=== PATIENT | female | born 1980 | race Two or more races ===

== ENCOUNTER 2024-12-17 03:01 | Inpatient (IN) | payer OTHER ==
[~2024-12-17] VITALS: Ht 157.5 cm; Wt 103.6 kg
--- NOTE | 2024-12-17 03:41 | DVH ---
CHEST RADIOGRAPH Indication: cp Technique: Single frontal view of the chest was obtained COMPARISON: None FINDINGS: Lines and Tubes: None Lungs: Clear Pleura: No effusion. No pneumothorax. Cardiomediastinal contours: Unremarkable Bones: Unremarkable IMPRESSION: 1. No acute disease.
[2024-12-17 03:42] LABS: Hematocrit 31.7 % (36.0-46.0); Hemoglobin 10.6 g/dL (12.2-16.2); Mean Corpuscular Hemoglobin 28.4 pg (28.0-32.0); Mean Corpuscular Volume 85.3 fL (80.0-100.0); Nucleated Red Blood Cells % 0.1 %
[2024-12-17 03:55] LABS: Potassium 4.4 mmol/L (3.5-5.1); Sodium 139 mmol/L (136-145)
[2024-12-17 03:56] LABS: Anion Gap 10 (5-15); Calcium 9.2 mg/dL (8.7-10.4); Carbon Dioxide 21 mmol/L (20-31)
[2024-12-17 04:01] LABS: BUN/Creatinine Ratio 13.1 (10.0-20.0)
[2024-12-17 04:07] LABS: Blood Urea Nitrogen 37 mg/dL (9-23); Chloride 108 mmol/L (98-107); Glucose 203 mg/dL (74-106)
--- NOTE | 2024-12-17 04:46 | ED.PDOC ---
History of Present Illness HPI Comments 44-year-old female who presents to the emergency department with chest pain that started approximately 10:47 p.m. last night. Pain worsened throughout the evening prompting her parents to the emergency department. She took 81 mg of aspirin at home with some relief of her pain. Pain was initially 10/10 in se verity. Pain is currently 2/10 in severity. She reports associated palpitations and shortness of breath. Patient states she has not been taking her blood pressure medications for the past 3 weeks, she had it on hold for a root canal which she had. She also had her Brilinta on hold. She has a history of [place] 3 years ago with a stent placement, hyperlipidemia and a hyper tension. She states his chest pain feels similar to previous TX. REVIEW OF SYSTEMS: General: No fever, no chills, or fatigue HEENT: No sore throat, no earache, no congestion, no neck pain. Cardiac: + chest pain. + palpitations. Lungs: + shortness of breath, no cough. GI: No nausea, no vomiting, no diarrhea, no constipation, no abdominal pain : No dysuria, frequency, or urgency. No hematuria. Musculoskeletal: No joint pain , no joint swelling, no extremity edema. Skin: No rash, no itching. Neuro: No headache, no dizziness, no weakness Chief Complaint: Chest Pain Time Seen by MD: 03:41 Allergies: Coded Allergies: NO KNOWN ALLERGIES (Unverified , 12/17/24) Mode of Arrival: Ambulatory Was a procedure done? Was a procedure done?: No Differential Dx Considerations may include: Differential diagnosis considered include but are not limited to conjunctivitis, subconjunctival hemorrhage, acute angle closure glaucoma, iritis, uveitis, scleritis, corneal injury, corneal abrasion, optic neuritis, retinal detachment, central retinal artery occlusion, central retinal vein occlusion, other X-Ray, Labs, Meds, VS Vital Signs Date Time Temp Pulse Resp B/P (MAP) Pulse Ox O2 Delivery O2 Flow Rate FiO2 12/17/24 03:04 98.1 108 18 216/114 100 98.1 Lab Test 12/17/24 03:23 Range/Units White Blood Count 13.1 H 4.4-10.8 10^3/uL Red Blood Count 3.71 L 4.0-5.20 10^6/uL Hemoglobin 10.6 L 12.2-16.2 g/dL Hematocrit 31.7 L 36.0-46.0 % Mean Corpuscular Volume 85.3 80.0-100.0 fL Mean Corpuscular Hemoglobin 28.4 28.0-32.0 pg Mean Corpuscular Hemoglobin Concent 33.3 32.0-36.0 g/dL Red Cell Distribution Width 13.4 11.8-14.3 % Platelet Count 203 140-450 10^3/uL Mean Platelet Volume 10.3 6.9-10.8 fL Neutrophils (%) (Auto) 66.5 37.0-80.0 % Lymphocytes (%) (Auto) 21.1 10.0-50.0 % Monocytes (%) (Auto) 10.2 0.0-12.0 % Eosinophils (%) (Auto) 1.4 0.0-7.0 % Basophils (%) (Auto) 0.8 0.0-2.0 % Neutrophils # (Auto) 8.7 H 1.6-8.6 10 ^3/uL Lymphocytes # (Auto) 2.8 0.4-5.4 10 ^3/uL Monocytes # (Auto) 1.3 0-1.3 10 ^3/uL Eosinophils # (Auto) 0.2 0-0.8 10 ^3/uL Basophils # (Auto) 0.1 0-0.2 10 ^3/uL Nucleated Red Blood Cells 0.1 % Sodium Level 139 136-145 mmol/L Potassium Level 4.4 3.5-5.1 mmol/L Chloride Level 108 H 98-107 mmol/L Carbon Dioxide Level 21 20-31 mmol/L Anion Gap 10 5-15 Blood Urea Nitrogen 37 H 9-23 mg/dL Creatinine 2.83 H 0.550-1.02 mg/dL Glomerular Filtration Rate Calc 21 >90 mL/min BUN/Creatinine Ratio 13.1 10.0-20.0 Serum Glucose 203 H 74-106 mg/dL Calcium Level 9.2 8.7-10.4 mg/dL Troponin I High Sensitivity 24 </=34 ng/L B-Type Natriuretic Peptide 167.21 0-100 pg/mL Time of 1ST Reevaluation: 04:44 Reevaluation 1ST: Improved Patient Education/Counseling: Other (Need for admission) Family Education/Counseling: No Family Present SEPSIS Sepsis Screen Date sepsis recognized/suspect: Dec 17, 2024 Time Sepsis recognized/suspect: 030 Recent Procedure: No On Antibiotic Therapy: No Respiratory Rate >20: No Heart Rate >90: Yes Temp<36 C (96.8 F) or >38.3 C: No SBP <90 or MAP <65 mmHG: No New Acute Mental Status Change: No Is the patient on CPAP, BIPAP,: No Physician Orders Electrocardigram (12/17/24 03:18) Troponin-I Hs (12/17/24 04:18) Troponin-I Hs (12/17/24 06:18) Electrocardigram (12/17/24 04:18) Electrocardigram (12/17/24 06:18) Chest Xray 1 View (12/17/24 03:22) Vital Signs Q1HR (12/17/24 03:22) Saline Lock (12/17/24 03:22) Social Work Associate (12/17/24 ) Vital Signs Date Time Temp Pulse Resp B/P (MAP) Pulse Ox O2 Delivery O2 Flow Rate FiO2 12/17/24 03:04 98.1 108 18 216/114 100 98.1 Laboratory Tests Test 12/17/24 03:23 White Blood Count 13.1 10^3/uL (4.4-10.8) H Departure 1 Departure Time of Disposition: 04:43 Impression: Primary Impression: Chest pain Additional Impressions: Hypertensive urgency PAVITHRA (acute kidney injury) Disposition: ADMITTED INPATIENT Condition: Guarded Comments Patient admitted to hospitalist service for further treatment, evaluation and monitoring. Critical Care Note Critical Care Time?: No Stability Stability form required: No Heart Score Heart Score: Heart Score Response (Comments) Value History Highly Suspicious 2 EKG Normal 0 Age <45 0 Risk Factors >3 or Hx ASHD 2 Troponin Normal limit 0 Total 4 SARA GARDNER MD Dec 17, 2024 04:46
[2024-12-17] MEDS ORDERED: NITROGLYCERIN 0.4 MG SL TAB SL PRN ×2 (06:45→08:30)
[2024-12-17] MEDS ORDERED: DEXTROSE (50%) 50ML SYRG IV PRN ×2 (06:45→09:00)
[2024-12-17] MEDS ORDERED: ONDANSETRON HCL 4 MG/2 ML VIAL IV PRN (06:45)
[2024-12-17] MEDS ORDERED: LABETALOL HCL 20 MG/4 ML VL IV PRN (06:45)
[2024-12-17] MEDS ORDERED: InsuLIN REG 1unit/0.01ml Soln (100units/ml) SC SCH ×2 (07:00→22:00)
[2024-12-17 08:00] VITALS: PULSE 76; RESP 13; O2SAT 98
[2024-12-17] MEDS: LABETALOL HCL 20 MG/4 ML VL IV ONE (08:21)
[2024-12-17] MEDS ORDERED: MORPHINE SULFATE INJ 2 MG/ml SYRG IV PRN (08:30)
[2024-12-17] MEDS: ACCU-CHEK COMFORT CURVE STRIP VI SCH ×2 (08:50→12:27)
[2024-12-17] MEDS: SODIUM CHLORIDE 0.9% 1,000 ML IV ONE (09:05)
[2024-12-17 09:06] LABS: Hematocrit 28.3 % (36.0-46.0); Hemoglobin 9.3 g/dL (12.2-16.2); Mean Corpuscular Hemoglobin 28.3 pg (28.0-32.0); Mean Corpuscular Volume 85.8 fL (80.0-100.0); Nucleated Red Blood Cells % 0.0 %
[2024-12-17 09:17] LABS: INR 0.92 (0.9-1.15); Partial Thromboplastin Time 23.6 SEC (24.5-34.5); Prothrombin Time 9.8 sec (9.3-11.8)
[2024-12-17] MEDS ORDERED: METOPROLOL SUCCINATE XL 50 MG TAB PO SCH (10:00)
[2024-12-17] MEDS: ASPirin-EC 81 mg tab PO SCH (10:26)
[2024-12-17] MEDS: METOPROLOL TARTRATE 25 MG TAB PO SCH (10:28)
[2024-12-17] MEDS: HEPARIN SODIUM (PORCINE) 5000 UNITS/ML 1ML VIAL IV ONE (10:29)
[2024-12-17] MEDS: HEPARIN DRIP/D5W 100UNITS/ML 250 ML IV SCH (10:31)
[2024-12-17 11:48] LABS: Urine Protein, UAD 3+ (Negative)
[2024-12-17] MEDS: InsuLIN REG 1unit/0.01ml Soln (100units/ml) SC SCH (12:32)
[2024-12-17 14:47] VITALS: BP 120/63; PULSE 67; RESP 18; TEMP 97.8; O2SAT 100
--- NOTE | 2024-12-17 14:51 | DVHHP2 ---
Admitting Diagnosis: NSTEMI History of Present Illness HPI Patient is a 44-year-old female with past medical history of [place] with drug- eluting stent placement on Brilinta 2 years prior, history of CKD stage IIIb, type 2 diabetes, who presents with complaints of chest pain and shortness of breath. Patient recently had a root canal completed and was holding her Brilinta and antihypertensives. Patient notes that she was holding these medications for the last 3 weeks. On arrival, patient's troponin was noted to rise from 24, 239, 501. Patient was admitted for NSTEMI. Review of Systems Cardiovascular: Chest Pain H&P Exam Vital Signs Vital Signs Date Time Temp Pulse Resp B/P (MAP) Pulse Ox O2 Delivery O2 Flow Rate FiO2 12/17/24 14:47 97.8 67 18 120/63 (82) 100 97.8 12/17/24 08:00 Room Air* 0 21 General Appeara: Well nourished Pulmonary/Respiratory: Normal breath sounds Cardiovascular/Chest: Regular rate SEPSIS Sepsis Screen Date sepsis recognized/suspect: Dec 17, 2024 Time Sepsis recognized/suspect: 0800 Recent Procedure: No On Antibiotic Therapy: No Respiratory Rate >20: No Heart Rate >90: No Temp<36 C (96.8 F) or >38.3 C: No SBP <90 or MAP <65 mmHG: No New Acute Mental Status Change: No Is the patient on CPAP, BIPAP,: No Physician Orders *Consult Dr.Mukeshchandra Leary (12/17/24 06:45) Labetalol Hcl (Labetalol Hcl) (12/17/24 06:45) Labetalol Hcl (Labetalol Hcl) (12/17/24 06:45) Atorvastatin (Lipitor) (12/17/24 22:00) Aspirin Enteric Coated Tablet (Ecotrin E (12/17/24 10:00) Strict I & O QSHIFT (12/17/24 06:45) Ondansetron Hcl (Zofran) (12/17/24 06:45) Metoprolol Tartrate Tablet (Lopressor Ta (12/17/24 10:00) Admit (12/17/24 08:28) Nitroglycerin Sublingual (Ntrostat Subli (12/17/24 08:30) Morphine Sulfate Injection (12/17/24 08:30) Stat Ekg For Chest Pain (12/17/24 08:28) Notify Md Of Changes From Base (12/17/24 08:28) Lace Sewer For 24 Hours (12/17/24 08:) Emergency Dysrhythmia Protocol (12/17/24 08:) Rhythm Strips Once Every Shift (12/17/24 08:28) Oxygen By Nasal Cannula (12/17/24:) Platelet Monitoring (12/17/24:) Heparin Per Standardized Proce (12/17/24:) Discontinue All Im Injections (12/17/24:29) Heparin Drip/D5w 100units/Ml (12/17/24 08:30) Npo Except Ice Chips (12/17/24 08:30) Echo 2d Mode Cardiac Dop (12/17/24 08:31) Glucose Blood (Accu-Chek Comfort Curve T (12/17/24 12:00) Insulin R (Human) (Insulin R) (12/17/24 12:00) Dextrose 50% Syringe (12/17/24 09:00) Complete Blood Count (12/18/24 04:00) PTPTT (12/17/24 16:00) Heparin Per Pharmacy Protocol (12/17/24 09:55) Cardiac Diet-2gna,Lofat,Lochol (12/17/24 Lunch) Npo After Midnight (12/17/24 12:37) Npo (Nothing By Mouth) Diet (12/18/24 Breakfast) Basic Metabolic Panel (12/17/24 14:13) Basic Metabolic Panel (12/18/24 04:00) Vital Signs Date Time Temp Pulse Resp B/P (MAP) Pulse Ox O2 Delivery O2 Flow Rate FiO2 12/17/24 14:47 97.8 67 18 120/63 (82) 100 97.8 12/17/24 12:00 68 12/17/24 11:30 67 132/58 12/17/24 10:28 70 148/65 12/17/24 08:21 74 136/66 12/17/24 08:00 76 13 98 Room Air* 0 21 12/17/24 08:00 97.2 76 13 142/61 (88) 98 97.2 12/17/24 08:00 80 12/17/24 08:00 142/61 10/22/25 06:56 202/67 Laboratory Tests Test 12/17/24 03:23 12/17/24 08:40 White Blood Count 13.1 10^3/uL (4.4-10.8) H 11.3 10^3/uL (4.4-10.8) H Medications Medications Dose Ordered Sig/Lopez Route Start Time Stop Time Status Last Admin Dose Admin Aspirin 81 mg DAILY PO 12/17/24 10:00 12/17/24 10:26 81 MG Aspirin 324 mg ONCE ONCE PO 12/17/24 03:30 12/17/24 03:31 DC 12/17/24 06:10 324 MG Clonidine HCl 0.2 mg ONCE ONCE PO 12/17/24 06:45 12/17/24 06:49 DC 12/17/24 06:56 0.2 MG Diagnostic Test (Pha) 1 strip ACHS 12/17/24 07:00 12/17/24 09:01 DC 12/17/24 08:50 1 STRIP Diagnostic Test (Pha) 1 strip Q6HR 12/17/24 12:00 12/17/24 12:27 1 STRIP Heparin Sodium (Porcine) 4,000 units ONCE ONCE IV 12/17/24 10:00 12/17/24 10:01 DC 12/17/24 10:29 4,000 UNITS Heparin Sodium/ Dextrose 250 ml @ 10 mls/hr Q24H IV 12/17/24 08:30 12/17/24 10:31 10 MLS/HR Insulin Human Regular Q6HR SC 12/17/24 12:00 12/17/24 12:32 6 UNITS Metoprolol Tartrate 25 mg BID PO 12/17/24 10:00 12/17/24 10:28 25 MG Sodium Chloride 1,000 ml @ 125 mls/hr Q8H ONCE IV 12/17/24 06:45 12/17/24 14:44 DC 12/17/24 09:05 125 MLS/HR Labs/Xrays Labs Test 12/17/24 12:26 12/17/24 10:04 12/17/24 08:40 12/17/24 07:30 Range/Units POC Glucose 251 H 70-106 mg/dl Urine Color Yellow Yellow Urine Clarity Hazy H Clear Urine pH 6.5 5.0-9.0 Urine Specific [place] 1.013 1.001-1.035 Urine Protein 3+ H Negative Urine Ketones Negative Negative Urine Blood 1+ H Negative /uL Urine Nitrite Negative Negative Urine Bilirubin Negative Negative Urine Urobilinogen Normal Negative mg/dL Urine Leukocyte Esterase Negative Negative /uL Urine RBC 15 0 - 4 /hpf Urine Microscopic WBC 9 H 0-5 /HPF Urine Squamous Epithelial Cells Few <5 /hpf Urine Bacteria Many H None Seen /hpf Urine Glucose 4+ H Normal mg/dL White Blood Count 11.3 H 4.4-10.8 10^3/uL Red Blood Count 3.30 L 4.0-5.20 10^6/uL Hemoglobin 9.3 L 12.2-16.2 g/dL Hematocrit 28.3 #L 36.0-46.0 % Mean Corpuscular Volume 85.8 80.0-100.0 fL Mean Corpuscular Hemoglobin 28.3 28.0-32.0 pg Mean Corpuscular Hemoglobin Concent 33.0 32.0-36.0 g/dL Red Cell Distribution Width 13.0 11.8-14.3 % Platelet Count 184 140-450 10^3/uL Mean Platelet Volume 10.1 6.9-10.8 fL Neutrophils (%) (Auto) 69.3 37.0-80.0 % Lymphocytes (%) (Auto) 18.8 10.0-50.0 % Monocytes (%) (Auto) 9.6 0.0-12.0 % Eosinophils (%) (Auto) 1.5 0.0-7.0 % Basophils (%) (Auto) 0.8 0.0-2.0 % Neutrophils # (Auto) 7.8 1.6-8.6 10 ^3/uL Lymphocytes # (Auto) 2.1 0.4-5.4 10 ^3/uL Monocytes # (Auto) 1.1 0-1.3 10 ^3/uL Eosinophils # (Auto) 0.2 0-0.8 10 ^3/uL Basophils # (Auto) 0.1 0-0.2 10 ^3/uL Nucleated Red Blood Cells 0.0 % Prothrombin Time 9.8 9.3-11.8 sec Prothrombin Time INR 0.92 0.9-1.15 Activated Partial Thromboplast Time 23.6 L 24.5-34.5 SEC Troponin I High Sensitivity 501 *H </=34 ng/L Test 12/17/24 03:23 Range/Units Sodium Level 139 136-145 mmol/L Potassium Level 4.4 3.5-5.1 mmol/L Chloride Level 108 H 98-107 mmol/L Carbon Dioxide Level 21 20-31 mmol/L Anion Gap 10 5-15 Blood Urea Nitrogen 37 H 9-23 mg/dL Creatinine 2.83 H 0.550-1.02 mg/dL Glomerular Filtration Rate Calc 21 >90 mL/min BUN/Creatinine Ratio 13.1 10.0-20.0 Serum Glucose 203 H 74-106 mg/dL Calcium Level 9.2 8.7-10.4 mg/dL B-Type Natriuretic Peptide 167.21 0-100 pg/mL Assessment/Plan Primary Diagnosis 1. NSTEMI 2. CAD with DANIELA 3. CKD Stage 3B 4. Type 2 DM 5. Hypertension Plan - Admit to telemetry - Cardiology, Dr. Fair consulted - Heparin drip - Aspirin 81 mg daily - Atorvastatin 40 mg daily - N.p.o. pending left heart cath - TTE ordered - Antihypertensive PRNs as ordered - N.p.o. pending further intervention -ICS with accuchecks - Daily CBC and BMP - Full code Plan discussed with: Patient AUBREY GONZALEZ DO Dec 17, 2024 14:51
[2024-12-17 16:33] LABS: Sodium 140 mmol/L (136-145)
[2024-12-17 16:34] LABS: Anion Gap 10 (5-15)
[2024-12-17 16:35] LABS: Calcium 8.1 mg/dL (8.7-10.4); Carbon Dioxide 19 mmol/L (20-31); Chloride 111 mmol/L (98-107); Potassium 5.3 mmol/L (3.5-5.1)
[2024-12-17 16:37] LABS: INR 0.95 (0.9-1.15); Partial Thromboplastin Time 51.9 SEC (24.5-34.5); Prothrombin Time 10.1 sec (9.3-11.8)
[2024-12-17 16:40] LABS: BUN/Creatinine Ratio 14.9 (10.0-20.0); Blood Urea Nitrogen 44 mg/dL (9-23); Glucose 159 mg/dL (74-106)
[2024-12-17 16:51] VITALS: BP 156/70; PULSE 71; RESP 18; TEMP 98.2; O2SAT 100
[2024-12-17] MEDS: SODIUM ZIRCONIUM CYCL 10 GM PAK PO ONE (21:31)
[2024-12-17 21:35] VITALS: BP 148/65; PULSE 69; RESP 12; TEMP 98.3; O2SAT 99
[2024-12-17] MEDS: IODIXANOL 320MG/ML 100ML BTL IV ONE ×2 (22:24→23:26)
[2024-12-17] MEDS: HEPARIN SODIUM (PORCINE) 5000 UNITS/ML 1ML VIAL ONE (22:28)
[2024-12-17] MEDS: VERAPAMIL 2.5MG/ML INJ 2ML VIAL IV ONE ×2 (22:28→23:30)
[2024-12-17] MEDS: fentaNYL CITRATE 100 MCG/2 ML VL ONE (22:29)
[2024-12-17] MEDS: LIDOCAINE 2%HCL (LOCAL ANESTH.) INJ 20ML MDV ONE (22:30)
[2024-12-17] MEDS: MIDAZOLAM HCL 2MG/2ML 2ml VIAL (1mg/ml) ONE (22:30)
--- NOTE | 2024-12-17 23:15 | DVHINCON2 ---
Date of service: Dec 17, 2024 Referring Physician Ayush Reason for Consultation Chest pain, elevated troponin, history of coronary stenting History of Present Illness This is a 44-year-old female with a PMH of [place] (3 years ago) with cardiac stent placement, hyperlipidemia and hypertension who presents to the emergency department with a complain of worsening chest pain that started approximately 10:47 p.m. last night. Patient reports took 81 mg of Aspirin at home with some relief of her pain. Pain was initially 10/10 in severity. Pain is currently 2/10 in severity. She reports associated palpitations and shortness of breath. Patient states she has not been taking her blood pressure medications for the past 3 weeks, she had it on hold for a recent root canal which she had. She also had her Brilinta on hold. She states his chest pain feels similar to previous DC. WBC 11.3, HGB 9.3, HCT 28.3, PTT 23.6, CL 108, BUN 37, PLASMA CENTER TECHNICIAN 2.83, GLUC 254, TROP 239, 501. Chest x-ray showed NAD.Patient was admitted to the hospital. I am asked to consult on this patient. Allergies: Coded Allergies: NO KNOWN ALLERGIES (Unverified , 12/17/24) Current Medications Current Medications Medications (Trade) Dose Ordered Sig/Lopez Route PRN Reason Start Time Stop Time Status Last Admin Labetalol HCl (Labetalol HCl) 10 mg Q4H PRN IV SBP>150 12/17/24 06:45 Labetalol HCl (Labetalol HCl) 20 mg Q4H PRN IV SBP>180 12/17/24 06:45 Atorvastatin Calcium (Lipitor) 80 mg HS PO 12/17/24 22:00 Metoprolol Succinate (Toprol Xl) 25 mg DAILY PO 12/17/24 10:00 12/17/24 07:21 DC Aspirin (Ecotrin Enteric Coated Tablet) 81 mg DAILY PO 12/17/24 10:00 12/17/24 10:26 Ondansetron HCl (Zofran) 4 mg Q4HPRN PRN IV NAUSEA / VOMITING 12/17/24 06:45 Diagnostic Test (Pha) (Accu-Chek Comfort Curve T) 1 strip ACHS 12/17/24 07:00 12/17/24 09:01 DC 12/17/24 08:50 Insulin Human Regular (InsuLIN R) HS SC 10/22/25 22:00 12/17/24 09:01 DC Insulin Human Regular (InsuLIN R) AC SC 12/17/24 07:00 12/17/24 09:01 DC Dextrose 50 ml UD PRN IV Blood Sugar LESS THAN 60 12/17/24 06:45 12/17/24 09:01 DC Nitroglycerin (Ntrostat Sublingual) 0.4 mg Q5MINP PRN SL FOR CHEST PAIN 12/17/24 06:45 12/17/24 08:40 DC Metoprolol Tartrate (Lopressor Tablet) 25 mg BID PO 12/17/24 10:00 12/17/24 10:28 Nitroglycerin (Ntrostat Sublingual) 0.4 mg Q5MINP PRN SL FOR CHEST PAIN 12/17/24 08:30 Morphine Sulfate 2 mg Q30M PRN IV FOR CHEST PAIN 12/17/24 08:30 Heparin Sodium/ Dextrose 250 ml @ 10 mls/hr Q24H IV 12/17/24 08:30 12/17/24 10:31 Diagnostic Test (Pha) (Accu-Chek Comfort Curve T) 1 strip Q6HR 12/17/24 12:00 Insulin Human Regular (InsuLIN R) Q6HR SC 12/17/24 12:00 Dextrose 50 ml UD PRN IV Blood Sugar LESS THAN 60 12/17/24 09:00 Review of Systems General: No fever, no chills, or fatigue HEENT: No sore throat, no earache, no congestion, no neck pain. Cardiac: + chest pain. + palpitations. Lungs: + shortness of breath, no cough. GI: No nausea, no vomiting, no diarrhea, no constipation, no abdominal pain : No dysuria, frequency, or urgency. No hematuria. Musculoskeletal: No joint pain , no joint swelling, no extremity edema. Skin: No rash, no itching. Neuro: No headache, no dizziness, no weakness Vital Signs Vital Signs Date Time Temp Pulse Resp B/P (MAP) Pulse Ox O2 Delivery O2 Flow Rate FiO2 12/17/24 11:30 67 132/58 12/17/24 08:00 13 98 Room Air* 0 21 12/17/24 08:00 97.2 97.2 Physical Exam GENERAL: Alert and oriented x 3. No acute distress. EYES: PERRL, EOMI. Anicteric. HENT: Moist mucous membranes. LUNGS: Clear to auscultation bilaterally. CARDIOVASCULAR: Regular rate and rhythm. ABDOMEN: Soft, nontender and nondistended. EXTREMITIES: No edema. NEUROLOGIC: No focal neurological deficits. SKIN: Warm, dry. Labs/Diagnostic Data Labs Test 12/17/24 10:04 12/17/24 08:48 12/17/24 08:40 12/17/24 07:30 Range/Units Urine Color Yellow Yellow Urine Clarity Hazy H Clear Urine pH 6.5 5.0-9.0 Urine Specific [place] 1.013 1.001-1.035 Urine Protein 3+ H Negative Urine Ketones Negative Negative Urine Blood 1+ H Negative /uL Urine Nitrite Negative Negative Urine Bilirubin Negative Negative Urine Urobilinogen Normal Negative mg/dL Urine Leukocyte Esterase Negative Negative /uL Urine RBC 15 0 - 4 /hpf Urine Microscopic WBC 9 H 0-5 /HPF Urine Squamous Epithelial Cells Few <5 /hpf Urine Bacteria Many H None Seen /hpf Urine Glucose 4+ H Normal mg/dL POC Glucose 254 H 70-106 mg/dl White Blood Count 11.3 H 4.4-10.8 10^3/uL Red Blood Count 3.30 L 4.0-5.20 10^6/uL Hemoglobin 9.3 L 12.2-16.2 g/dL Hematocrit 28.3 #L 36.0-46.0 % Mean Corpuscular Volume 85.8 80.0-100.0 fL Mean Corpuscular Hemoglobin 28.3 28.0-32.0 pg Mean Corpuscular Hemoglobin Concent 33.0 32.0-36.0 g/dL Red Cell Distribution Width 13.0 11.8-14.3 % Platelet Count 184 140-450 10^3/uL Mean Platelet Volume 10.1 6.9-10.8 fL Neutrophils (%) (Auto) 69.3 37.0-80.0 % Lymphocytes (%) (Auto) 18.8 10.0-50.0 % Monocytes (%) (Auto) 9.6 0.0-12.0 % Eosinophils (%) (Auto) 1.5 0.0-7.0 % Basophils (%) (Auto) 0.8 0.0-2.0 % Neutrophils # (Auto) 7.8 1.6-8.6 10 ^3/uL Lymphocytes # (Auto) 2.1 0.4-5.4 10 ^3/uL Monocytes # (Auto) 1.1 0-1.3 10 ^3/uL Eosinophils # (Auto) 0.2 0-0.8 10 ^3/uL Basophils # (Auto) 0.1 0-0.2 10 ^3/uL Nucleated Red Blood Cells 0.0 % Prothrombin Time 9.8 9.3-11.8 sec Prothrombin Time INR 0.92 0.9-1.15 Activated Partial Thromboplast Time 23.6 L 24.5-34.5 SEC Troponin I High Sensitivity 501 *H </=34 ng/L Test 12/17/24 03:23 Range/Units Sodium Level 139 136-145 mmol/L Potassium Level 4.4 3.5-5.1 mmol/L Chloride Level 108 H 98-107 mmol/L Carbon Dioxide Level 21 20-31 mmol/L Anion Gap 10 5-15 Blood Urea Nitrogen 37 H 9-23 mg/dL Creatinine 2.83 H 0.550-1.02 mg/dL Glomerular Filtration Rate Calc 21 >90 mL/min BUN/Creatinine Ratio 13.1 10.0-20.0 Serum Glucose 203 H 74-106 mg/dL Calcium Level 9.2 8.7-10.4 mg/dL B-Type Natriuretic Peptide 167.21 0-100 pg/mL Assessment NSTEMI. History of DC 3 years ago with cardiac stent placement. Hyperlipidemia. Hypertension. Plan/Recommendation I agree with your ongoing assessment and care of plan. Nitro SL. Heparin drip per protocol. Aspirin, Lipitor, Metoprolol. IV Labetalol for SBP > 180. Morphine for pain management. Additional plan as per the hospital course. A total of 45 minutes was spent reviewing the patient record, examining the patient, making a diagnostic and therapeutic plan, discussing this plan with medical personnel, following up on diagnostic studies and following the patient for clinical stability excluding any and all procedures. At least 50% of this time was spent in direct, [id number] contact. Plan discussed with: Patient AMESTACIE Munguia MD Dec 17, 2024 11:56
[2024-12-18] VITALS (11 sets, daily range): BP systolic 154–181; BP diastolic 74–90; PULSE 72–83; RESP 10–18; TEMP 36.7; O2SAT 98–100
[2024-12-18] MEDS: ATORVASTATIN 20 MG TAB PO SCH (00:17)
[2024-12-18] MEDS: TICAGRELOR 90 MG TAB ONE (00:19)
[2024-12-18] MEDS ORDERED: CHOL20007 PO (03:19)
[2024-12-18] MEDS ORDERED: TICA90TA PO ×2 (03:19→07:25)
[2024-12-18] MEDS ORDERED: METO25TA5 PO (03:19)
[2024-12-18] MEDS ORDERED: ASPI-543 PO ×2 (03:19→07:25)
[2024-12-18] MEDS ORDERED: ATOR20TA PO (03:19)
[2024-12-18] MEDS ORDERED: PIO30T PO (03:19)
[2024-12-18] MEDS: LABETALOL HCL 20 MG/4 ML VL IV PRN (05:42)
[2024-12-18 05:48] LABS: Hematocrit 27.6 % (36.0-46.0); Hemoglobin 9.2 g/dL (12.2-16.2); Mean Corpuscular Hemoglobin 28.7 pg (28.0-32.0); Mean Corpuscular Volume 86.3 fL (80.0-100.0); Nucleated Red Blood Cells % 0.0 %
[2024-12-18 05:55] LABS: Potassium 4.6 mmol/L (3.5-5.1); Sodium 136 mmol/L (136-145)
[2024-12-18 05:56] LABS: Anion Gap 8 (5-15)
[2024-12-18 05:58] LABS: Calcium 8.2 mg/dL (8.7-10.4); Carbon Dioxide 19 mmol/L (20-31); Chloride 109 mmol/L (98-107)
[2024-12-18 06:02] LABS: BUN/Creatinine Ratio 14.5 (10.0-20.0)
[2024-12-18 06:06] LABS: Blood Urea Nitrogen 37 mg/dL (9-23); Glucose 214 mg/dL (74-106)
--- NOTE | 2024-12-18 07:32 | DVHDS2 ---
New Physician D'charge PN Admitting Diagnosis Admitting Diagnosis nstemi Discharge Diagnosis nstemi s/p PCI x1 Operations or Procedures cardiac cath with PCI x1 Reason(s) For Hospitalization Surgery Hospital Course 44 F who has a hx of VT and PCI x1 in the past comes to the ER for chest pain. Her troponin peaked at 500 and she was admitted and started on heparin gtt. Cardiology saw her and she consented for coronary angiogram which she had done by cardio and she underwent PCI x 1 to RCA this hospital admission, Patient tolerated the procedure well and has been cleared by cardiology for discharge home, Patient will be given prescription for asa/brillinta as recommended by cardiology and she will continue her statin and beta kate at home as she already takes these meds at home, [facility] to arrange for all outpt follow up and patient cleared by cardiology for discharge home, Treatment Plan Discharge Condition of Discharge Good Disposition Home Discharge Instructions Diet: Cardiac 2g Na,low cholest Activity: No Restrictions, As Tolerated Medications: see med sheet Follow Up Care Follow Up/Referral: pcp cardio Discharge Statement: "Patient was advised to return to the ER or call 911 if any headaches, dizziness, shortness of breath, chest pain, abdominal pain, bleeding, fevers, or worsening of medical condition. Patient was counseled about treatment plan, medications, possible side effects, patientverbalized understanding. All questions were answered to the best of my ability. This discharge took greater then 30 minutes in planning, reviewing documentation, counseling the patient, and discussing with other team members." UZIEL MURPHY MD Dec 18, 2024 07:32
[2024-12-18] MEDS: TICAGRELOR 90 MG TAB PO SCH (10:09)
--- NOTE | 2024-12-18 18:48 | DVHPN2 ---
Progress Note - Dictate Date Seen: Dec 18, 2024 Medical Necessity Reason Pt with a Central, PICC or Fol: No Subjective Patient was seen and evaluated in follow up. Patient underwent cardiac cath with PCI x1. The patient tolerated the procedure well. HGB 9.2, HCT 27.6, CL 109, CO2 19, BUN 37, IMMUNOLOGY SPECIALIST 2.56, GLUC 216, CA 8.2. Telemetry reviewed. vital signs Vital Sign Date Time Temp Pulse Resp B/P (MAP) Pulse Ox O2 Delivery O2 Flow Rate FiO2 12/18/24 11:57 87 176/90 12/18/24 10:11 36.7 12/18/24 09:00 18 100 12/18/24 01:51 Room Air* 0 21 Total Intake and Output 12/17/24 12/17/24 12/18/24 15:00 23:00 07:00 Intake Total 200 ml Balance 200 ml medications Current Medications Medications Dose Ordered Sig/Lopez Route Start Time Stop Time Status Last Admin Dose Admin Labetalol HCl 10 mg Q4H PRN IV 12/17/24 06:45 12/18/24 11:57 10 MG Labetalol HCl 20 mg Q4H PRN IV 12/17/24 06:45 Atorvastatin Calcium 80 mg HS PO 12/17/24 22:00 12/18/24 00:17 80 MG Aspirin 81 mg DAILY PO 12/17/24 10:00 12/18/24 10:09 81 MG Ondansetron HCl 4 mg Q4HPRN PRN IV 12/17/24 06:45 Metoprolol Tartrate 25 mg BID PO 12/17/24 10:00 12/18/24 10:09 25 MG Nitroglycerin 0.4 mg Q5MINP PRN SL 12/17/24 08:30 Morphine Sulfate 2 mg Q30M PRN IV 12/17/24 08:30 Diagnostic Test (Pha) 1 strip Q6HR 12/17/24 12:00 12/18/24 12:02 1 STRIP Insulin Human Regular Q6HR SC 12/17/24 12:00 12/18/24 05:54 4 UNITS Dextrose 50 ml UD PRN IV 12/17/24 09:00 Ticagrelor 90 mg BID PO 12/18/24 10:00 12/18/24 10:09 90 MG Aspirin 81 mg BID PO 12/18/24 10:00 objective GENERAL: Alert and oriented x 3. No acute distress. EYES: PERRL, EOMI. Anicteric. HENT: Moist mucous membranes. LUNGS: Clear to auscultation bilaterally. CARDIOVASCULAR: Regular rate and rhythm. ABDOMEN: Soft, nontender and nondistended. EXTREMITIES: No edema. NEUROLOGIC: No focal neurological deficits. SKIN: Warm, dry. laboratory and microbiology Laboratory Tests 12/18/24 05:24 Test 12/18/24 05:24 Range/Units Serum Glucose 214 H 74-106 mg/dL Problem List NSTEMI. History of DC 3 years ago with cardiac stent placement. Hyperlipidemia. Hypertension. Assessment/Plan Continued all current supportive medical care. Nitro SL. IV Labetalol for SBP > 180. Aspirin, Lipitor, Metoprolol, Brilinta. Morphine for pain management. Additional plan as per the hospital course. Plan discussed with: Patient STACIE MCCLOUD MD Dec 18, 2024 12:56
--- NOTE | 2024-12-18 23:11 | DVHSR ---
APPROVED REPORT EXAM: Two-dimensional and M-mode echocardiogram with Doppler and color Doppler. Blood Pressure: 136/66 mmHg INDICATION NSTEMI RISK FACTORS Height: 5' 2", Weight: 219 DIMENSIONS LVDd4.7 (3.8-5.7cm)LA (2D)3.8 (1.9-4.0cm)Aortic Root2.8 (2.0-3.7cm) LVDs3.4 (2.5-4.0cm)LA (MM) (1.9-4.0cm)Aortic Cusp Exc1.5 (1.5-2.0cm) EF (%) 55.0 (55-70%)Rt. Atrium3.5 (1.9-4.0cm)Asc. Aorta cm IVSd0.9 (0.7-1.1cm)RV (D) (1.8-2.4cm) PWd0.9 (0.7-1.1cm) Mitral Valve MitralMitral Stenosis E wave1.30m/sMV Mean GR.mmHg A wave0.90m/sMV Peak GR.mmHg E/A ratio1.42D MVAcm2 Aortic Valve Aortic ValveAortic Stenosis V10.80m/Jesu Mean GR.16mmHg V22.80m/Jesu Peak GR.31mmHg Pulmonic Valve V20.80m/s Tricuspid Valve TR Velocity1.80m/s [id number] Conclusion MODERATE DEGREE LVH AND MODERATE DEGREE LV DIASTOLIC DYSFUNCTION LV EF IS 65% AORTIC SCLEROSIS MITRAL ANNULAR CALCIFICATION NO EFFUSION
[2024-12-19 12:02] LABS: Hepatitis B Surface Antigen Negative (Negative); Hepatitis C Antibody Negative (Negative)
--- NOTE | 2024-12-19 12:42 | DVHOP ---
DATE OF SURGERY: 12/17/2024 TECHNIQUES PERFORMED: * Emergency case. * Ultrasound of the right radial artery. * Management of conscious sedation. * Ultrasound-guided insertion of 6-Wallisian arterial line from the right radial artery. * Teller selective left and right coronary artery angiography. ASSISTANTS: Assisted by Deb Hernández Brian and Naz. INDICATIONS: The patient has an acute myocardial infarction, history of previous angioplasty and stenting of the left anterior descending artery. The patient has a history of diabetes, hypertension, chronic kidney disease. DESCRIPTION OF PROCEDURE: Risks and benefits discussed in a standard manner, especially with kidney failure because her GFR is low and ____. The patient had been brought to the skill labor. The right radial area thoroughly cleaned with soap and Betadine. A 6-Wallisian arterial line had been placed. Under ultrasound guidance, we have put a TIG catheter 5-Wallisian 4.0 and the right coronary angio done. With the help of similar catheter, we have gone through also with the left coronary artery angiography and the procedure completed. IMPRESSION: * Right coronary artery with very large dominant artery. Right coronary artery in its mid region has about 2 lesions. The first lesion is 90% blocked. The second lesion is 99% blocked. Posterior descending artery along with posterolateral branch is normal. * The left main is normal. * The left circumflex artery is moderately large artery, normal obtuse marginal artery, have been widely opened. * The left anterior descending artery has been narrowed, in the range of 80%. There are total of 3 lesions noted in the ____ artery, one in the mid region 70% followed by another 70% lesion. Another at the junction of the mid distal region ____ also 90%. The previously deployed stent in the left mid distal region of the left anterior descending artery is largely opened. Now, the patient ____ total of 3 lesions noted in the mid region of the left anterior descending artery. PLAN OF ACTION: At this time ____ will undergo the angioplasty and stenting of the right dominant and right coronary artery and the left anterior descending artery is not an emergency at this time. Matias Fair MD MP/PAT/BOB TID: [id number] RECEIPT: [id number]
--- NOTE | 2024-12-19 12:49 | DVHOP ---
DATE OF SURGERY: 12/17/2024 TECHNIQUES PERFORMED: * Emergency case. * Ultrasound of the right radial artery. * Management of conscious sedation. * Ultrasound-guided insertion of 6-Tajik arterial line in the ____ artery. * Right coronary angiography. * Balloon angioplasty of the mid region of the right coronary artery with 2.5 x 20 mm length semi-compliant balloon. * Stenting and angioplasty of the mid region of the right coronary artery with 2.75 x 26 mm in length [employer] [place] drug-eluting stent of the [employer] [place]. * The intravascular ultrasound of the right coronary artery of the stent region. * Balloon angioplasty of the entire stent region with 3.0 x 8 mm length noncompliant balloon and mid artery size up to 3.25 mm in size. COMPLICATIONS: None. ASSISTANTS: Assisted by Deb Hernández Brian and Angie. INDICATIONS: As follows: This patient has underlying 90% narrowing of the mid region of the right coronary artery followed by another lesion in the range of 99%, right dominant right coronary artery, known ST elevation SC. DESCRIPTION OF PROCEDURE: The risk of kidney failure clearly discussed and may happen to undergo dialysis. ____. The patient has been brought to the cardiac laborer wood preserving plant where ____ cleaned with soap and Betadine. Lidocaine was given and under ultrasound guidance 6-Tajik arterial line was placed. The patient got 200 mcg of the nitroglycerin, 2.5 mg of verapamil, 2000 units of heparin was given. We have put EBU catheter, unable to engage it, so now we changed it to JR-4, 6-Tajik guiding catheter and able to engage it. With a side hole, we put MS Whisper wire, went through very well. Subsequently, now we put a balloon 2.5 x 20, balloon angioplasty was done. Subsequently, we put a stent 2.75 x 26. Stent was deployed at total of 13 and 15 atmospheres and 17 atmospheres. Stent size was increased gradually, 3.0 mm in size. Subsequently, we did intravascular ____. So we put a 3.0 x 15 mm length noncompliant balloon, unable to pass through it. So, now we put a 3.0 x 8 mm length noncompliant balloon 8-Tajik, balloon angioplasty was done in proximal, mid and distal region of the stent and made the stent site to 3.25 mm in size. Procedure went well. Angiography was done. There were no complications. Balloon, wire and catheter all had been discontinued. CONCLUSIONS: * Prior to performing the procedure #1, the right coronary artery from the entire mid section is narrowed. The first lesion is 90%, second lesion is 99%. Both the lesions have a WOJCIECH grade 3 flow. * The post-procedure WOJCIECH grade 3 flow, residual stenosis is 0%. PLAN OF ACTION: Advised for Brilinta, aspirin, beta-kate and cholesterol-reducing medicine, outpatient followup, and we will decide about a further plan of action about the left anterior descending artery at a later date. Continue aspirin, Brilinta, beta-kate and cholesterol-reducing medicine. Matias Fair MD MP/SEAN/BOB TID: [id number] RECEIPT: [id number]
--- NOTE | 2024-12-23 16:40 | ECG ---
[facility] Test Date: 2024-12-17 Test Time: 03:10:04 Pat Name: EMETERIO ANTONY Department: ED Room: [address] [place] [address] Gender: F Emergency Communications Operator: LAYNE : 1980 Requested By: SARA GARDNER Order Number: [id number] Reading MD: Measurements Intervals [place] Rate: 106 P: 63 IA: 87 QRS: 83 QRSD: 157 T: -50 QT: 316 QTc: 420 Interpretive Statements Sinus tachycardia Nonspecific intraventricular conduction delay Repol abnrm suggests ischemia, anterolateral Please click the below link to view image of tracing.
== END 2024-12-18 14:32 | disposition home or self-care (01) | DRG 174 ==
LOC: ER 03:01 → OVERFLOW 08:28 → TELE-EAST 12-18 01:10
PROVIDERS: ADMIT Student in an Organized Health Care Education/Training Program; ATTEND Student in an Organized Health Care Education/Training Program
PROC: 03HY32Z Insertion of Monitoring Device into Upper Artery, Percutaneous Approach (ICD-10-PCS; principal; 2024-12-17)
PROC: 027034Z Dilation of Coronary Artery, One Artery with Drug-eluting Intraluminal Device, Percutaneous Approach (ICD-10-PCS; 2024-12-17)
PROC: B240ZZ3 Ultrasonography of Single Coronary Artery, Intravascular (ICD-10-PCS; 2024-12-17)
PROC: B211YZZ Fluoroscopy of Multiple Coronary Arteries using Other Contrast (ICD-10-PCS; 2024-12-17)
DX: I21.4 Non-ST elevation (NSTEMI) myocardial infarction (principal); N17.0 Acute kidney failure with tubular necrosis; I50.33 Acute on chronic diastolic (congestive) heart failure; R65.11 Systemic inflammatory response syndrome (SIRS) of non-infectious origin with acute organ dysfunction; I16.0 Hypertensive urgency; E11.22 Type 2 diabetes mellitus with diabetic chronic kidney disease; E78.5 Hyperlipidemia, unspecified; I25.10 Atherosclerotic heart disease of native coronary artery without angina pectoris; N18.32 Chronic kidney disease, stage 3b; I12.9 Hypertensive chronic kidney disease with stage 1 through stage 4 chronic kidney disease, or unspecified chronic kidney disease; Z79.82 Long term (current) use of aspirin; Z79.899 Other long term (current) drug therapy; Z91.148 Patient's other noncompliance with medication regimen for other reason
CPT/HCPCS: 36415; 71045; 80048; 81001; 82962; 83880; 84484; 85025; 85610; 85730; 86803; 87340; 92941; 92978; 93005; 93306; 93454; 99152; C1887; G0378; J1815; J2250; Q9967

== ENCOUNTER 2025-01-22 15:56 | Emergency (ER) | payer OTHER ==
[~2025-01-22] VITALS: Ht 157.5 cm; Wt 101.8 kg
[~2025-01-22 15:56] MED LIST: ASPI-543 PO; ATOR20TA PO; CHOL20007 PO; METO25TA5 PO; PIO30T PO; TICA90TA PO
[2025-01-22 15:59] VITALS: PULSE 97; RESP 18; TEMP 98.7; O2SAT 100
--- NOTE | 2025-01-22 16:26 | ED.PDOC ---
HPI Comments A 44 YEAR OLD FEMALE PRESENTS TO THE ED WITH COMPLAINT OF LACERATION OF LEFT INDEX FINGER. PATIENT STATES SHE WAS COOKING AND SHE ACCIDENTALLY CUT HER LEFT INDEX FINGER WITH THE KNIFE SHE WAS USING. PATIENT REPORTS SHE IS CONCERNED DUE HER TAKING BLOOD THINNERS. BLEEDING IS CONTROLLED AT THIS TIME. PATIENT DENIES FEVER, CHILLS, SHORTNESS OF BREATH, CHEST PAIN, ABDOMINAL PAIN, NAUSEA, VOMITING, HEADACHE, OR OTHER COMPLAINTS. NO OTHER SYMPTOMS OR MODIFYING FACTORS AT THIS TIME. PATIENT IS ALERT, ORIENTED X 4, AND HAS STEADY GAIT. Chief Complaint: Laceration Time Seen by MD: 16:19 Reviewed Notes: Nurses Notes, Medications, Allergies Allergies: Coded Allergies: NO KNOWN ALLERGIES (Unverified , 12/17/24) Home Meds Active Scripts Cephalexin Monohydrate (Cephalexin) 500 Mg Cap, 1 CAP PO QID, #32 CAP Prov:VIDAL BONDS 01/22/25 Ticagrelor Base (BRILINTA) 90 Mg Tab, 90 MG PO BID for 30 Days, #60 TAB 3 Refills Prov:UZIEL MURPHY MD 12/18/24 Aspirin (Aspir-Low) 81 Mg Tab, 81 MG PO DAILY for 30 Days, #30 MG 3 Refills Prov:UZIEL MURPHY MD 12/18/24 Reported Medications Pioglitazone Hydrochloride (ACTOS TABLET) 30 Mg Tb, 1 TAB PO DAILY, #30 TAB 5 Refills 12/18/24 Cholecalciferol (VITAMIN D3) 2,000 Unit Tab, 1 TAB PO DAILY, #30 TAB 5 Refills 12/18/24 Metoprolol Tartrate (Metoprolol Tartrate) 25 Mg Tab, 25 MG PO for 30 Days, MG 12/18/24 Atorvastatin Calcium (Lipitor) 20 Mg Tab, 1 TAB PO DAILY, #90 TAB 1 Refill 12/18/24 Information Source: Patient Mode of Arrival: Ambulatory Severity: Moderate Severity of Laceration: Controlled Bleeding Complexity: Simple Timing: Hours Prehospital treatment: None Laceration Location: Digit #2 (LEFT INDEX FINGER) Mechanism: Knife Last Tetanus: Unknown Laceration Length (cm): 3 Skin Type: Linear Depth of Injury: SQ Tendon Injury: 0% Capillary Refill: < 3 seconds Tender: Moderate Discharge: None Erythema: None Associated Signs and Symptoms: None Past Medical History PAST MEDICAL HISTORY: [place], [place] Surgical History: Denies all surgeries PAINTER HELPER History: No Pertinent PAINTER HELPER History Family History Family History: Reviewed,noncontributory to illness Social History Smoker: Non-Smoker Alcohol: Denies ETOH Use Drugs: Denies Drug Use Lives In: Home Constitutional: denies: chills, diaphoresis, fatigue, fever, malaise, sweats, weakness, others EENTM: denies: blurred vision, double vision, ear bleeding, ear discharge, ear drainage, ear pain, ear ringing, eye pain, eye redness, hearing loss, mouth pain, mouth swelling, nasal discharge, nose bleeding, nose congestion, nose pain, photophobia, tearing, throat pain, throat swelling, voice changes, others Respiratory: denies: cough, hemoptysis, orthopnea, SOB at rest, shortness of breath, SOB with excertion, stridor, wheezing, others Cardiovascular: denies: chest pain, dizzy spells, diaphoresis, Dyspnea on exertion, edema, irregular heart beat, left arm pain, lightheadedness, palpitations, PND, syncope, others Gastrointestinal: denies: abdomen distended, abdominal pain, blood streaked bowels, constipated, diarrhea, dysphagia, difficulty swallowing, hematemesis, melena, nausea, poor appetite, poor fluid intake, rectal bleeding, rectal pain, vomiting, others Genitourinary: denies: abnormal vagina bleeding, burning, dyspareunia, dysuria, flank pain, frequency, hematuria, incontinence, pain, , vagina discharge, urgency, others Neurological: denies: dizziness, fainting, headache, left sided numbness, left sided weakness, numbness, paresthesia, pre-existing deficit, right sided numbness, right sided weakness, seizure, speech problems, tingling, tremors, weakness, others Musculoskeletal: denies: back pain, gout, joint pain, joint swelling, muscle pain, muscle stiffness, neck pain, others Integumetry: reports: laceration (LACERATION OF LEFT INDEX FINGER); denies: bruises, change in color, change in hair/nails, dryness, lesions, lumps, rash, wounds, others Allergic/Immunocompromised: denies: Difficulty Healing, Frequent Infections, Hives, Itching, others Hematologic/Lymphatic: denies: anemia, blood clots, easy bleeding, easy bruising, swollen glands, others Endocrine: denies: excessive hunger, excessive sweating, excessive thirst, excessive urination, flushing, intolerance to cold, intolerance to heat, unexplained weight gain, unexplained weight loss, others Psychiatric: denies: anxiety, bipolar disorder, depression, hopeless, panic disorder, schizophrenia, sleepless, suicidal, others All Other Systems: Reviewed and Negative Physical Exam General Appearance: No Apparent Distress, Obese HEENT: Normal ENT Inspection, PERRL/EOMI, Pharynx Normal, TMs Normal Neck: Full Range of Motion, Non-Tender, Normal, Normal Inspection Respiratory: Chest Non-Tender, Lungs Clear, No Accessory Muscle Use, No Respiratory Distress, Normal Breath Sounds Cardiovascular: No Edema, No JVD, No Murmur, No Gallop, Normal Peripheral Pulses, Regular Rate/Rhythm Breast Exam: Deferred Gastrointestinal: No Organomegaly, Non Tender, No Pulsatile Mass, Normal Bowel Sounds, Soft Genitalia: Deferred Pelvic: Deferred Rectal: Deferred Extremities: No calf tenderness, Normal capillary refill, Normal range of motion, No pedal edema, Tender (WITH LACERATION ON LEFT VOLAR INDEX FINGER, NO BONY TENDERNESS, SWELLING AND DEFORMITY. ) Musculoskeletal : Apperance: Normal Neurologic: Alert, bundler II-XII nml as Tested, No Motor Deficits, Normal Affect, Normal Mood, No Sensory Deficits Cerebellar Function: Normal Reflexes: Normal Skin: Dry, Lacerations (3CM LACERATION ON LEFT VOLAR INDEX FINGER, NO BLEEDING AND BLOOD CLOTS, NEUROVASCULAR INTACT, NORMAL ROM. ), Normal Color, Warm Peripheral Pulses: 2+ carotid (R), 2+ carotid (L), 2+ Radial (R), 2+ Radial (L) Lymphatic: No Adenopathy Was a procedure done? Was a procedure done?: Yes Sedation Sedation?: No Laceration Repair : Location LEFT INDEX FINGER Length 3CM Anesthetic: Lidocaine, Without epi Laceration Repair Prep: Saline, by Irrigation Laceration Repair Wound Comple: epidermis/dermis repair Laceration Repair: Number of sutures (6), SQ, Size (4-0 ETHILON), Nylon, Simple, Bacitracin, Gauze Informed consent obtained: No Risks, benefits, and alternati: Yes Images 1 - Differential diagnosis Generic Laceration: Abrasion/Contusion, Laceration, Avulsion Differential Diagnosis: N/A X-Ray, Labs, Meds, VS Vital Signs Date Time Temp Pulse Resp B/P (MAP) Pulse Ox O2 Delivery O2 Flow Rate FiO2 01/22/25 15:59 98.7 97 18 100 98.7 X-Ray, Labs, Meds, VS Comment EXTERNAL MEDICAL RECORDS REVIEWED: [NONE] INDEPENDENT HISTORIANS: [NONE] SOCIAL DETERMINANTS OF HEALTH: [NONE] LABS ORDERED: NONE REVIEWED AND INTERPRETED RESULTS: NONE IMAGING ORDERED: NONE TREATMENTS ORDERED: LACERATION REPAIR, SEE PROCEDURE SECTION. PROCEDURES PERFORMED: LACERATION REPAIR, SEE PROCEDURE SECTION. CRITICAL CARE TIME: NONE I HAVE DISCUSSED THE PATIENT WITH THE ATTENDING PHYSICIAN DR. COELLO AND HE AGREES WITH THE PATIENT'S PLAN OF CARE AND DISPOSITION. BASED ON HISTORY OF PRESENT ILLNESS, AND PHYSICAL EXAM, PATIENT WILL BE DISCHARGED HOME. DISCUSSED PLAN FOR DISCHARGE HOME WITH RX [KEFLEX]. MEDICATION WARNINGS GIVEN. SHARED DECISION MAKING: DISCUSSED WITH PATIENT THAT THEIR WORKUP WAS NORMAL. PATIENT INSTRUCTED TO FOLLOW UP WITH PRIMARY CARE PROVIDER IN 1-2 DAYS FOR RE- EVALUATION OF SYMPTOMS. PATIENT VERBALIZES UNDERSTANDING TO RETURN TO ED FOR NEW OR WORSENING SYMPTOMS OR IF FOLLOW UP WITH PCP CANNOT BE OBTAINED. PATIENT FEELS COMFORTABLE GOING HOME AT THIS TIME. ALL QUESTIONS ADDRESSED AT TIME OF DISCHARGE. Time of 1ST Reevaluation: 17:15 Reevaluation 1ST: Improved Patient Education/Counseling: Diagnosis, Treatment, Need For Follow Up Family Education/Counseling: Diagnosis, Treatment, Need For Follow Up Medical Screening: No EMC Exist At This Time Departure 1 Departure Time of Disposition: 17:15 Impression: Primary Impression: Laceration of left index finger Qualified Codes: S61.211A - Laceration without foreign body of left index finger without damage to nail, initial encounter Disposition: 01 HOME / SELF CARE / HOMELESS Condition: Stable Additional Instructions: FOLLOW-UP WITH PCP IN 1 TO 2 DAYS. TAKE MEDICATIONS PRESCRIBED. RETURN TO ED FOR ANY NEW OR WORSENING SYMPTOMS. e-Prescriptions Cephalexin Monohydrate (Cephalexin) 500 Mg Cap 1 CAP PO QID, #32 CAP Prov: VIDAL BONDS 01/22/25 Discharged With: Self Critical Care Note Critical Care Time?: No Stability Stability form required: No I personally scribed for VIDAL BONDS ([email or web address]) on 01/22/25 at 16:26. Electronically submitted by Yunior Ogden ([email or web address]). I personally scribed for VIDAL BONDS ([email or web address]) on 01/22/25 at 16:48. Electronically submitted by Yunior Ogden ([email or web address]). VIDAL BONDS Jan 22, 2025 16:26
[2025-01-22] MEDS: LIDOCAINE 1% HCL (LOCAL ANESTH.) INJ 20ML MDV IJ ONE (16:34)
[2025-01-22] MEDS ORDERED: CEPH500C PO (16:48)
== END 2025-01-22 17:03 | disposition home or self-care (01) ==
LOC: ER 15:56
DX: S61.211A Laceration without foreign body of left index finger without damage to nail, initial encounter (principal); E11.9 Type 2 diabetes mellitus without complications; I25.2 Old myocardial infarction; Z79.899 Other long term (current) drug therapy; Z79.84 Long term (current) use of oral hypoglycemic drugs; Z79.82 Long term (current) use of aspirin; W26.0XXA Contact with knife, initial encounter; Y93.G3 Activity, cooking and baking; Y92.89 Other specified places as the place of occurrence of the external cause; Y99.8 Other external cause status
CPT/HCPCS: 12002; 99283; A4649; J2003